=== PATIENT | female | born 1945 | race Caucasian/White ===

== ENCOUNTER → 2017-07-20 | Outpatient (CLI) | payer MEDICARE, BC ==
[~2017-07-20] MED LIST: ADVA100A INH; ALBU0.08 NEB; BUSP5TAB PO; CHOL1CHW6 CHEW; CYAN1000P IM; CYCL1TAB29 PO; DICL1GEL7 TOPICAL; FAMO1TAB73 PO; GENT0.2D2 EACH EYE; IBUP800T23 PO; MIRA25TA PO; MIRA3350; MULT1TAB21; NATURAL VITALITY; PEAK FLOW METER1 MIS; PREV30TA3 PO; PROC25SU22 RECTAL; WHEA1POW13; [UNRECOGNIZED DRUG - CODE] EACH EYE; nebulizer
[2017-07-20 09:33] LABS: ANION GAP 8 MEQ/L (5-15); AST (GOT) 25 U/L (15-37); BICARBONATE 28.4 MEQ/L (21.0-32.0); BLOOD UREA NITROGEN 12 MG/DL (7-18); CHLORIDE 105 MEQ/L (98-107); GLOMERULAR FILTRATION RATE 74 ML/MIN (>89); GLUCOSE,FASTING 119 MG/DL (74-99); POTASSIUM 3.8 MEQ/L (3.5-5.1); SODIUM (NA) 141 MEQ/L (136-145)
[2017-07-20 09:38] LABS: ALKALINE PHOSPHATASE 123 U/L (45-117); ALT (GPT) 43 U/L (10-53); HDL CHOLESTEROL 58.1 MG/DL (40.0-60.0); LDL CHOLESTEROL 141 MG/DL (0-99); TOTAL BILIRUBIN ADULT 0.9 MG/DL (0.2-1.0)
[2017-07-20 15:26] LABS: HEMOGLOBIN A1a 1.3 %; HEMOGLOBIN Ao 84.1 %; HEMOGLOBIN LA1C 1.9 %; HEMOGLOBIN P3 3.6 %
== END ==
LOC: CLAB 08:33
PROVIDERS: ATTEND Family Medicine
DX: R73.02 Impaired glucose tolerance (oral) (principal); E55.9 Vitamin D deficiency, unspecified; R03.0 Elevated blood-pressure reading, without diagnosis of hypertension; E78.5 Hyperlipidemia, unspecified
CPT/HCPCS: 36415; 80053; 80061; 82306; 83036

== ENCOUNTER → 2017-10-30 | Outpatient (CLI) | payer MEDICARE, BC ==
[~2017-10-30] MED LIST changes: +ALBUAER3 INH; +CYCL10TA PO; -CYCL1TAB29 PO; +IBUP1TAB7 PO; -IBUP800T23 PO
[2017-10-30 11:15] LABS: ALKALINE PHOSPHATASE 121 U/L (45-117); HDL CHOLESTEROL 59.4 MG/DL (40.0-60.0); TOTAL BILIRUBIN ADULT 1.2 MG/DL (0.2-1.0); TOTAL PROTEIN 7.2 GM/DL (6.4-8.2); TRIGLYCERIDES 92 MG/DL (42-150)
[2017-10-30 11:22] LABS: ALBUMIN 3.6 GM/DL (3.4-5.0); ALT (GPT) 48 U/L (10-53); AST (GOT) 37 U/L (15-37); BICARBONATE 31.3 MEQ/L (21.0-32.0); BLOOD UREA NITROGEN 13 MG/DL (7-18); CHLORIDE 105 MEQ/L (98-107); CHOLESTEROL 221 MG/DL (120-200); CHOLESTEROL/ HDL RATIO 3.72 RATIO; CREATININE 0.81 MG/DL (0.50-1.00); GLOMERULAR FILTRATION RATE 70 ML/MIN (>89); GLUCOSE,FASTING 101 MG/DL (74-99); LDL CHOLESTEROL 143 MG/DL (0-99); SODIUM (NA) 141 MEQ/L (136-145)
== END ==
LOC: CLAB 10:28
PROVIDERS: ATTEND Family Medicine
DX: E55.9 Vitamin D deficiency, unspecified (principal); E78.5 Hyperlipidemia, unspecified
CPT/HCPCS: 36415; 80053; 80061; 82306

== ENCOUNTER → 2018-01-18 | Outpatient (CLI) | payer MEDICARE, BC ==
[2018-01-18 12:04] LABS: ALBUMIN 3.6 GM/DL (3.4-5.0); ALT (GPT) 46 U/L (10-53); AST (GOT) 30 U/L (15-37); BICARBONATE 31.3 MEQ/L (21.0-32.0); BLOOD UREA NITROGEN 7 MG/DL (7-18); CALCIUM 9.5 MG/DL (8.5-10.1); CHLORIDE 108 MEQ/L (98-107); CREATININE 0.76 MG/DL (0.50-1.00); GLOMERULAR FILTRATION RATE 75 ML/MIN (>89); GLUCOSE,FASTING 96 MG/DL (74-99); SODIUM (NA) 145 MEQ/L (136-145)
[2018-01-18 12:06] LABS: ALKALINE PHOSPHATASE 116 U/L (45-117); TOTAL PROTEIN 7.3 GM/DL (6.4-8.2)
== END ==
LOC: CLAB 11:20
PROVIDERS: ATTEND Family Medicine
DX: E55.9 Vitamin D deficiency, unspecified (principal)
CPT/HCPCS: 36415; 80053; 82306